=== PATIENT | female | born 1985 | race Caucasian/White ===

== ENCOUNTER 2019-02-05 19:11 | Emergency (ER) | payer SELFPAY ==
[~2019-02-05] VITALS: Ht 162.6 cm; Wt 81.6 kg
[2019-02-05 19:50] VITALS: Ht 162.6 cm; Wt 81.6 kg
[2019-02-05 22:08] LABS: microscopic required? YES; urine erythrocyte 2+ (NEGATIVE)
[2019-02-05 22:16] LABS: BASOPHIL % 0.9 % (0-2); PLATELET COUNT 226 x10^3mcL (130-400); RED CELL DISTRIBUTION WIDTH 13.1 % (11.5-14.5)
[2019-02-05 23:58] VITALS: BP 105/60
== END 2019-02-06 00:23 | disposition home or self-care (01) ==
LOC: ED 19:11
PROVIDERS: Emergency Medicine
DX: N39.0 Urinary tract infection, site not specified (principal)
CPT/HCPCS: 36415